=== PATIENT | female | born 1995 | race Hispanic/Latino ===

== ENCOUNTER 2019-03-05 17:13 | Outpatient (CLI) | payer OTHER ==
--- NOTE | 2019-03-05 17:35 | RAD ---
EXAM: Chest 2 views: HISTORY: Pleuritic chest pain COMPARISON: None. FINDINGS: There is a normal-sized cardiomediastinal silhouette. There is no evidence of consolidation, mass, or pleural effusion. The bones are unremarkable. IMPRESSION: No evidence of acute cardiopulmonary disease
--- NOTE | 2019-03-05 17:37 | RAD ---
EXAM: Single anterior view of the thoracic and lumbosacral spine (scoliosis series) HISTORY: Scoliosis COMPARISON: None FINDINGS: Anterior views of the thoracic and lumbar spine shows normal height and alignment of the ve rtebral bodies and intervertebral discs without fracture or subluxation. Mild scoliosis is seen. A maximum Salas angle of 9 degrees is seen. No significant degenerative changes are seen. IMPRESSION: Mild scoliosis
== END 2019-03-05 17:14 | disposition home or self-care (01) ==
LOC: NAV RAD 17:13
PROVIDERS: ATTEND Nurse Practitioner Family
DX: R07.81 Pleurodynia (principal); M41.9 Scoliosis, unspecified; Z87.39 Personal history of other diseases of the musculoskeletal system and connective tissue
CPT/HCPCS: 71046; 72081

== ENCOUNTER 2019-12-12 19:10 | Emergency (ER) | payer OTHER, SELFPAY ==
[2019-12-12] MEDS ORDERED: Lidocaine 1% (PF) 30 ML VIAL ONE (19:24)
[2019-12-12] MEDS ORDERED: Bacitracin 1 PK ONE (19:35)
[2019-12-12] MEDS ORDERED: Adacel (T-DAP) 0.5 ML SYRINGE ONE (19:43)
== END 2019-12-12 19:52 | disposition home or self-care (01) ==
LOC: NAV ERS 19:10
DX: S51.012A Laceration without foreign body of left elbow, initial encounter (principal); W10.9XXA Fall (on) (from) unspecified stairs and steps, initial encounter
CPT/HCPCS: 12001; 90471; 90715; J2001